=== PATIENT | male | born 1985 | race Caucasian/White ===

== ENCOUNTER 2017-12-14 16:39 | Emergency (ER) | payer MEDICAID, OTHER ==
[2017-12-14 16:43] VITALS: BP 115/63; PULSE 62; RESP 16; TEMP 97.9; O2SAT 97
[2017-12-14] MEDS ORDERED: FLUORESCEIN SODIUM 1 MG STRIP OP ONE (16:46)
[2017-12-14] MEDS ORDERED: PROPARACAINE 0.5% 15 ML OPHT DROP OP ONE (16:46)
--- NOTE | 2017-12-14 16:47 | EDPHY ---
H & P Stated Complaint: scratched r eye with plant Time Seen by Provider: 12/14/17 16:46 - Personal History Current Tetanus/Diphtheria Vaccine: Yes - Medical/Surgical History Hx Asthma: No Hx Chronic Respiratory Disease: No Hx Diabetes: No Hx Cardiac Disease: No Hx Renal Disease: No Hx Cirrhosis: No Hx Alcoholism: No Hx HIV/AIDS: No Hx Splenectomy or Spleen Trauma: No Other PMH: denies - Social History Smoking Status: Never smoked Constitutional: Initial Vital Signs Temperature (C) 36.6 C 12/14/17 16:41 Heart Rate 62 12/14/17 16:41 Respiratory Rate 16 12/14/17 16:41 Blood Pressure 115/63 12/14/17 16:41 O2 Sat (%) 97 12/14/17 16:41 O2 Delivery Mode Room Air Allergies/Adverse Reactions: No Known Allergies Allergy (Unverified 12/14/17 16:41) Home Medications: Medication Instructions Recorded NK [No Known Home Meds] 12/14/17 Medical Decision Making ED Course/Re-evaluation: CHIEF COMPLAINT: Eye pain HISTORY OF PRESENT ILLNESS: The patient is a 31 y/o male complaining of right eye pain secondary to trauma this afternoon. He was at the store looking at several plants when he moved his head causing a plant to poke his right eye. The plant looked like a big aloe plant and struck the lower portion of his right iris and caused what he describes as a cut. He has some pain at the site. No change in vision, itching, swelling. He does not use corrective lenses or contacts. REVIEW OF SYSTEMS: A 10 point review of systems was performed and is negative with the exception of the elements mentioned in the history of present illness. PHYSICAL EXAM: HR, BP, O2 Sat, RR. Temp noted General Appearance: Alert, well hydrated, appropriate, and non-toxic appearing. Visual Acuity: Noted from Nurse's notes. Pupils: PERRLA, EOMI, no nystagmus, no trauma, no injection. Lids: No edema or swelling Skin: No proptosis, no periorbital erythema or swelling, no vesicles Conjunctivae: Not injected, not icteric, no discharge Cornea: Exam with slit lamp and fluorescein shows corneal laceration with embedded sliver of plant at 4 o'clock. Anterior chamber: Normal, no hyphema or hypopyon Posterior Chamber: No papilledema or hemorrhages. Past medical history: Denies Past surgical history: Denies Family history: Noncontributory Social history: Lives in [place]. Employed. DIFFERENTIAL DIAGNOSIS: The differential diagnosis for the patient's symptoms included but was not limited to corneal laceration, corneal abrasion, corneal foreign body, conjunctivitis. MEDICAL DECISION MAKING: This is a healthy 31 y/o male who presents with right eye pain secondary to being poked in the eye with an aloe-like plant this afternoon. On slit lamp exam , he has a corneal laceration with an embedded sliver of plant around the 4 o' clock position of his cornea. Vision is unchanged. Plan to consult ophthalmology. 1657: Consulted with Dr. Licona, ophthalmology. - Data Points Medications Given: Discontinued Medications Fluorescein Sodium (Ymetu-I-Oebsk) 1 mg OP EDNOW ONE Stop: 12/14/17 16:47 Last Admin: 12/14/17 16:49 Dose: 1 mg Proparacaine HCl (Alcaine 0.5%) 1 drops OP EDNOW ONE Stop: 12/14/17 16:47 Last Admin: 12/14/17 16:49 Dose: 1 btl Departure - Departure Disposition: Home, Routine, Self-Care Clinical Impression: Corneal laceration Qualifiers: Encounter type: initial encounter Laterality: right Qualified Code(s): S05.31XA - Ocular laceration without prolapse or loss of intraocular tissue, right eye, initial encounter Corneal foreign body Qualifiers: Encounter type: initial encounter Laterality: right Qualified Code(s): T15.01XA - Foreign body in cornea, right eye, initial encounter Condition: Good Instructions: Eye Foreign Body (ED) Additional Instructions: Go directly to Dr. Licona's office across the street at [address] [place] [address]. here in [place]. Referrals: Eladio Licona MD [Medical Doctor] - As per Instructions Report Scribed for: Tim Fay Report Scribed by: Rosalinda Alonzo Date of Report: 12/14/17 Time of Report: 16:48
== END 2017-12-14 17:18 | disposition home or self-care (01) ==
DX: S05.31XA Ocular laceration without prolapse or loss of intraocular tissue, right eye, initial encounter (principal); T15.01XA Foreign body in cornea, right eye, initial encounter; W22.8XXA Striking against or struck by other objects, initial encounter; Y92.512 Supermarket, store or market as the place of occurrence of the external cause